=== PATIENT | female | born 1970 | race Native Hawaiian/Other Pacific Islander ===

== ENCOUNTER 2021-03-02 22:53 | Emergency (ER) | payer OTHER ==
[~2021-03-02] VITALS: Ht 170.2 cm; Wt 158.8 kg
== END 2021-03-03 02:36 | disposition expired ==
LOC: EDBD 22:54 → ED 22:54
PROC: 5A12012 Performance of Cardiac Output, Single, Manual (ICD-10-PCS; principal; 2021-03-02)
DX: I46.9 Cardiac arrest, cause unspecified (principal)
CPT/HCPCS: 96361; 96374; 96375; 99285; J0171; J1815; J7060